=== PATIENT | male | born 1945 | race Caucasian/White ===

== ENCOUNTER 2020-09-28 10:34 | Emergency (ER) | payer MEDICARE ==
[~2020-09-28] VITALS: Ht 180.3 cm; Wt 80.3 kg
[~2020-09-28 10:34] MED LIST: ALBUPOW26 INH; ALLO100T PO; ALPR1TAB7 PO; ASPI1TAB19 PO; BISA-4 PO; CETI10TA93 PO; DOCU250C4 PO; FINA5TAB4 PO; FLUO0.05 EX; IPRIH IN; LORA10TA6 PO; MONT10TA42 PO; OMEP20CA74 PO; QUET300T23 PO; SIMV-13 PO; SUMA50TA16 PO; TERA10CA36 PO; VENL150C58 PO
[2020-09-28 10:58] VITALS: BP 147/98
[2020-09-28] MEDS ORDERED: cefTRIAXone 1GM/50ML D5W 50 ML IV ONE (11:15)
== END 2020-09-28 12:07 | disposition home or self-care (01) ==
LOC: ER 10:34
DX: L03.211 Cellulitis of face (principal); K02.9 Dental caries, unspecified; I10 Essential (primary) hypertension; E11.9 Type 2 diabetes mellitus without complications; Z88.5 Allergy status to narcotic agent; Z79.82 Long term (current) use of aspirin; Z79.899 Other long term (current) drug therapy
CPT/HCPCS: 96365; 99284; J0696